=== PATIENT | female | born 1965 | race Two or more races ===

== ENCOUNTER 2019-04-06 13:30 | Emergency (ER) | payer OTHER ==
[~2019-04-06] VITALS: Ht 157.5 cm; Wt 70.0 kg
[2019-04-06] MEDS ORDERED: ALBU2.5V13 IH (13:40)
[2019-04-06] MEDS ORDERED: CITA20TA19 PO (13:40)
[2019-04-06] MEDS ORDERED: ALPR0.5T PO (13:40)
[2019-04-06] MEDS ORDERED: KETOROLAC 30MG/ML VIAL IV STA (14:21)
[2019-04-06] MEDS ORDERED: PROCHLORPERAZINE 10MG/2ML VIAL IV PRN (14:30)
[2019-04-06] MEDS ORDERED: DIPHENHYDRAMINE 50MG/ML VIAL IV ONE (14:30)
[2019-04-06 14:38] LABS: BASOPHILS % 0.3 % (0.0-2.0); EOSINOPHILS % 1.3 % (0.0-5.0); HEMATOCRIT. 39.8 % (36.0-48.0); HEMOGLOBIN. 13.1 g/dL (12.0-16.0); LYMPHOCYTES % 20.7 % (20.0-50.0); MEAN CORPUSCULAR HEMOGLOBIN 28.6 pg (28.0-32.0); MEAN CORPUSCULAR VOLUME 86.7 fL (81.0-99.0); MEAN PLATELET VOLUME 10.7 fl (7.4-10.4); MONOCYTES % 5.4 % (2.0-8.0); NEUTROPHILS % 72.3 % (40.0-76.0); PLATELET 130 x1000/uL (130-400); RED BLOOD CELL COUNT 4.59 mill/uL (4.2-5.4); RED CELL DISTRIBUTION WIDTH 15.9 % (11.6-14.6)
[2019-04-06 14:45] LABS: CHLORIDE 107 mEq/L (98-107)
[2019-04-06] MEDS ORDERED: ONDANSETRON HCL 4MG/2ML INJ IV ONE (15:45)
[2019-04-06 15:54] LABS: CLARITY URINE CLEAR (CLEAR); COLOR URINE ORANGE (YELLOW); KETONES URINE NEGATIVE (NEGATIVE); LEUKOCYTE ESTERASE URINE NEGATIVE (NEGATIVE); NITRITE URINE NEGATIVE (NEGATIVE); OCCULT BLOOD URINE 3+ (NEGATIVE); PH URINE 6.5 (4.5-8.0); PROTEIN URINE NEGATIVE (NEGATIVE); UROBILINOGEN URINE 0.2 E.U./dL (0.2-1.0)
[2019-04-06] MEDS ORDERED: ACETAMINOPHEN 500MG TABLET PO ONE (17:30)
[2019-04-06 18:45] VITALS: BP 129/82
== END 2019-04-06 19:08 | disposition home or self-care (01) ==
LOC: ER 14:10
DX: G43.909 Migraine, unspecified, not intractable, without status migrainosus (principal); J45.909 Unspecified asthma, uncomplicated; F17.210 Nicotine dependence, cigarettes, uncomplicated
CPT/HCPCS: 36415; 70450; 80053; 81003; 85025; 96374; 96375; 99284; J1885; J2405